=== PATIENT | male | born 1970 | race Caucasian/White ===

== ENCOUNTER 2024-04-03 19:19 | Emergency (ER) | payer MEDICAID ==
[~2024-04-03] VITALS: Ht 175.3 cm; Wt 121.6 kg
[2024-04-03 19:28] VITALS: BP 120/88; PULSE 85; RESP 24; TEMP 97.8; O2SAT 96
[2024-04-03] MEDS: HALOPERIDOL IM 5 MG/ML VIAL IVP ONE (20:29)
[2024-04-03] MEDS: diphenhydrAMINE 50 MG/ML VIAL IVP ONE (20:29)
[2024-04-03] MEDS: NACL 0.9% 1,000 ML IV ONE (20:29)
[2024-04-03 20:48] VITALS: O2SAT 97
[2024-04-03 21:04] LABS: AMPHETAMINE, URINE POSITIVE ng/ml (NEG <=1000); BARBITURATE, URINE NEGATIVE ng/ml (NEG <=200); BENZODIAZEPINE, URINE NEGATIVE ng/mL (NEG <=200)
[2024-04-03 21:05] LABS: CANNABINOID, URINE POSITIVE ng/mL (NEG <=50); COCAINE, URINE POSITIVE ng/mL (NEG <=300); OPIATE, URINE NEGATIVE ng/mL (NEG <=2000); PHENCYCLIDINE SCREEN,URINE NEGATIVE ng/mL (NEG <=25)
== END 2024-04-03 21:53 | disposition home or self-care (01) ==
LOC: MED 19:19
DX: R11.2 Nausea with vomiting, unspecified (principal); F15.90 Other stimulant use, unspecified, uncomplicated; F12.90 Cannabis use, unspecified, uncomplicated; F14.90 Cocaine use, unspecified, uncomplicated; K21.9 Gastro-esophageal reflux disease without esophagitis
CPT/HCPCS: 80305; 96361; 96374; 96375; 99284; J1200; J1630; J7030